=== PATIENT | male | born 1950 | race Caucasian/White ===

== ENCOUNTER → 2018-03-07 16:16 | Outpatient (CLI) | payer OTHER, SELFPAY ==
--- NOTE | 2018-03-07 16:20 | MRI_ITS ---
STUDY: MRI BRAIN WITH AND WITHOUT CONTRAST (ATTENTION INTERNAL AUDITORY CANALS - I.A.C.'s) REASON FOR EXAM: Male, 67 years old. Right-sided hearing loss. TECHNIQUE: Standardized multiplanar fat and water weighted pulse sequences were obtained. 10 ml of Gadavist contrast material was administered intravenously for the contrast portion of the examination. COMPARISON: None. FINDINGS: No restricted diffusion to suspect acute or subacute ischemic infarct. Normal bilateral temporal bones. Normal bilateral internal auditory canals. There is no demonstrated intracanalicular or cisternal vestibular schwannoma (acoustic neuroma). There is no enhancement of the bilateral VIIth or VIIIth cranial nerves. Normal bilateral cochlea, vestibules and semicircular canals. Normal size of the ventricles and extra-axial spaces for the patient's age. Normal white matter tracts of the supratentorial brain. Normal bilateral basal ganglia. Normal thalami. Normal flow voids within the major intracranial circulation suggesting patency by spin echo criteria. Normal venous enhancement. There is no enhancing intra-axial or extra-axial abnormality. There is no extra-axial fluid accumulation. Normal sella turcica, pituitary gland, infundibular stalk, optic chiasm and hypothalamus. Normal tectal plate and pineal gland. Normal midbrain, alvaro and medulla. Normal cerebellum. Normal basal cisterns. No demonstrated orbital abnormality, within the constraints of a routine brain study. Normal visualized paranasal sinuses. Normal calvarium and skull base. Normal visualized soft tissue structures. Normal visualized upper cervical spine. MRI/Brain W/WO Contrast IMPRESSION: Normal unenhanced and enhanced MRI of the bilateral internal auditory canals (I.A.C's). Electronically Signed: Blaine Maya MD at 15:59 EST , Service support ,
[2018-03-07 16:51] LABS: CREATININE FINGERSTICK 1.1 mg/dL (0.70-1.30); EGFR FINGERSTICK > 60.0000 mL/min (>60)
== END ==
PROVIDERS: Referring Provider Otolaryngology Otolaryngology/Facial Plastic Surgery; Visit Provider Otolaryngology Otolaryngology/Facial Plastic Surgery
DX: H91.91 Unspecified hearing loss, right ear (principal)
CPT/HCPCS: 70553; A9585

== ENCOUNTER 2018-04-30 08:08 | Emergency (ER) | payer OTHER, SELFPAY ==
[2018-04-30 08:09] VITALS: BP 150/91; PULSE 95; RESP 18; TEMP 36.6; O2SAT 96; BMI 30.7
--- NOTE | 2018-04-30 08:42 | EKG12_ITS ---
Test Reason : GEN ILL Blood Pressure : / mmHG Vent. Rate : 084 BPM Atrial Rate : 084 BPM P-R Int : 144 ms QRS Dur : 098 ms QT Int : 374 ms P-R-T Axes : 050 -16 029 degrees QTc Int : 441 ms Normal sinus rhythm Normal ECG Confirmed by ULYSSES WILLIAM, VERÓNICA ([id number]), staff editor ADELIA ABRAHAM ([id number]) on 05/02/2018 3:50:53 PM Referred By: HENRIQUE/ANTHONY Confirmed By:VERÓNICA ARORA MD
[2018-04-30 08:46] LABS: Bedside Glucose > 500 mg/dL (70-110)
--- NOTE | 2018-04-30 08:49 | ED.DCSUM_ITS ---
- ER Visit Summary Date of Service: 04/30/18 Chief Complaint: Increased thirst and weight loss History of Present Illness: The patient is a 67 M who presents the emergency department with 1 week history of increased thirst, increased urination particularly at night and a 15 pound weight loss in the past week. He states that he is tried quitting drinking around 7 PM but still finds himself urinating frequently. He notes blurry vision for the past couple days. He states he saw an eye doctor 3-4 months ago and things were okay. He notes decreased energy. He has been eating normally. Denies any sensory changes particularly in the feet. 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 Otherwise he takes no medications. He is a non-smoker. He lives at home with his and rarely uses alcohol. Physical Examination: Afebrile blood pressure 150/91. Gen: Well-nourished well- developed Head: Normocephalic atraumatic Eyes: Perrl EOMI ENT: TMs clear no rhinorrhea moist mucous membranes Neck: Supple no lymphadenopathy no JVD nontender CVS: Regular rate rhythm no murmurs normal S1-S2 Respiratory: No distress clear to auscultation bilaterally chest nontender Abdomen: Soft protuberant nontender nondistended normal bowel sounds no masses Back: Nontender Extremity: Nontender no edema Skin: Normal color no rash Neuro: alert orientated ?3 CN II-XII intact normal strength sensation reflexes gait cerebellar Psych: Normal affect normal mood Test Results: Initial Accu-Chek read high. Basic blood work showed normal electrolytes. Glucose 670. BUN 22 creatinine 1.58. TSH was normal. Ketones were negative. EKG sinus at a rate of 84. Emergency Department Course and Treatment: Patient received IV fluids and insulin. His blood sugar is down. Checked with his insurance company and next up on the no Doc list is Dr. Anton. She is in network for him. I spoke with her and we will start him on metformin 500 mg at night and glipizide 4 mg in the morning. He has diabetes/dietitian education scheduled. Social work was involved in his care. Impression: 1. New onset diabetes This note was generated with [employer] software. It may contain incorrect words, spelling, and punctuation that were not noted in review of the chart prior to signing ED Disposition - Plan for ED Patient: Disposition: Home or Assisted Living Instructions: What Is Type 2 Diabetes? Prescriptions: Glimepiride [Amaryl] 4 mg PO DAILY #30 tab Metformin(XR) [Glucophage Xr] 500 mg PO QHS #30 tab Referrals: Megan Anton MD [STAFF PHYSICIAN] - (call to arrange early follow up appointment)
--- NOTE | 2018-04-30 08:49 | NURSING ---
NO OLD EKGS
[2018-04-30] MEDS: 0.9% Normal Saline 1,000 ML 1000 ML IV (08:54)
[2018-04-30 09:00] LABS: Bacteria 0 SEEN /hpf (None Seen); Mucous, Urine 0 SEEN /hpf (<or=2+); Red Blood Cells-Urine 0 SEEN /hpf (0-5); Squamous Epithelial Cells - UA 0 SEEN /hpf (0-5); White Blood Cells 0 SEEN /hpf (0-5)
[2018-04-30 09:03] LABS: Color, Urine Yellow (Yellow); Glucose, Dipstick 1000 mg/dl (Normal); Ketone-Dipstick 50 mg/dl (Negative); Leukocyte Esterase-Dipstick Negative /ul (Negative); Nitrite-Dipstick Negative (Negative); Occult Blood-Urine Negative /ul (Negative); Protein-Dipstick Negative (Negative); Urine Bilirubin Dipstick Negative (Negative); Urine Clarity Clear (Clear); Urine Urobilinogen Normal (Normal)
[2018-04-30 09:10] LABS: Absolute Lymphocyte Count 1.27 X10^3/ul (0.83-4.51); Absolute Neutrophil Count 5.3 X10^3/uL (2.0-7.7); Basophil# 0.02 X10^3/uL; Basophil% 0.3 % (0-1); Eosinophil# 0.03 X10^3/uL; Eosinophils% 0.4 % (0-5); Hematocrit 48.3 % (40-54); Hemoglobin 17.2 g/dl (13.0-16.5); Lymphocyte # 1.27 X10^3/ul (4.0); Lymphocyte % 17.5 % (19-41); Mean Corp Hgb Conc 35.6 g/gl (32-36); Mean Corpuscular Hgb 31.2 pg (27.0-32.0); Mean Corpuscular Volume 87.7 fL (80-94); Mean Platelet Vol. 11.2 fl (6.2-12.0); Monocyte# 0.58 X10^3/uL; Neutrophil # 5.34 X10^3/uL (2.7-7.7); Neutrophil % 73.7 % (47-70); Platelet Count 211 K/mm3 (150-450); RBC Distribution Width CV 12.7 % (11.6-14.6); RBC Distribution Width SD 40.4 fl (35.1-43.9); Red Blood Count 5.51 M/mm3 (4.6-6.2); White Blood Count 7.3 K/mm3 (4.4-11.0)
[2018-04-30 09:11] LABS: POSITIVE COUNT NO; POSITIVE DIFFERENTIAL NO; POSITIVE MORPHOLOGY NO
[2018-04-30 09:36] LABS: AST(SGOT) 27 U/L (15-37); Alanine Aminotransfer ALT/SGPT 70 U/L (16-61); Albumin, Serum 4.2 g/dL (3.2-5.0); Alkaline Phosphatase 214 U/L (45-117); Anion Gap 12 (5-15); BUN 22 mg/dL (7-18); BUN/Creat Ratio 13.9 RATIO (10-20); Bilirubin, Direct 0.27 mg/dL (0.00-0.30); Calcium,Total 9.1 mg/dL (8.5-10.1); Chloride 101 mmol/L (98-107); Creatinine, Serum 1.58 mg/dL (0.70-1.30); EST Glomerular Filtration Rate 47 mL/min (>60); Est Glom Filt Rate - Afr Amer 57 mL/min (>60); Estimated Creatinine Clearance 48.13 ml/min; Globulin 3.7 g/dL (2.2-4.2); Glucose 670 mg/dL (74-106); Magnesium 2.6 mg/dL (1.6-2.6); Potassium 4.3 mmol/L (3.5-5.1); Protein, Total 7.9 g/dL (6.4-8.2); Sodium Level 136 mmol/L (136-145); Thyroid Stim Hormone (TSH) 0.83 uIU/mL (0.358-3.74)
[2018-04-30] MEDS: 0.9% Normal Saline 1,000 ML 150 ML IV (10:09)
[2018-04-30] MEDS: Insulin Lispro 100 UNIT/ML INSULN.PEN 10 UNIT IV (10:27)
--- NOTE | 2018-04-30 11:25 | CM.ED ---
SOCIAL WORK NOTE DR. VILLANUEVA REQUESTING THIS WORKER FOLLOW UP WITH PT FOR NEEDS. PT TO BE CALLING [employer] TO INQUIRE IF DR. HERNANDEZ IN NETWORK WITH INSURANCE PT DOES NOT HAVE PRIMARY CARE. PT ALSO NEW DIABETIC AND WILL NEED DIABETIC EDUCATION. THIS WORKER CALLED AND LEFT MESSAGE WITH THE [facility]. AWAITING CALL BACK AT THIS TIME. MET WITH PT AND PT'S AT BEDSIDE. INTRODUCED ROLE AND REASON FOR REFERRAL. PT STATES DID SPEAK WITH [employer] AND DR. HERNANDEZ IS IN NETWORK WITH INSURANCE. DISCUSSED NEW DX OF DIABETES. SUPPORT AND EDUCATION PROVIDED. INFORMED PT THIS WORKER WORKING ON APPOINTMENT WITH [facility] FOR PT AND . PT DENIES ANY OTHER NEEDS AT THIS TIME. THIS WORKER TO FOLLOW UP. DIMITRI TEJADA, SMALL ENGINE TECHNICIAN, SHIPPING SERVICES SALES REPRESENTATIVE.
[2018-04-30 11:26] LABS: Bedside Glucose 409 mg/dL (70-110)
--- NOTE | 2018-04-30 11:44 | CM.ED ---
SOCIAL WORK NOTE RECEIVED CALL BACK FROM [facility] WITH THE [facility]ETIC [facility]. APPOINTMENT SCHEDULED FOR 05/02/18 AT 1:30P. [facility] TO FAX THIS WORKER A REFERRAL FORM FOR DR. VILLANUEVA TO COMPLETE. WILL UPDATE PT AND DR. VILLANUEVA. DIMITRI TEJADA, BANDER AND CELLOPHANER MACHINE HELPER, INFORMATION OFFICER.
--- NOTE | 2018-04-30 12:23 | ED.RN ---
IV DC'ED, CATHETER INTACT,SMALL GAUZE DRESSING PLACED. DISCHARGE INSTRUCTIONS GIVEN TO AND REVIEWED WITH PATIENT, PATIENT DENIES QUESTIONS OR CONCERNS AND VOICES UNDERSTANDING OF DISCHARGE INSTRUCTIONS. PT AMBULATES OUT OF ROOM WITHOUT DIFFICULTY.
--- NOTE | 2018-04-30 12:28 | CM.ED ---
SOCIAL WORK NOTE DR. VILLANUEVA SIGNED ORDER FOR REFERRAL FOR DIABETIC CLINIC. UPDATED PT AND ON APPOINTMENT TIME, DATE AND LOCATION. PT AND IN AGREEMENT. WITH QUESTIONS FOR NURSE. NURSE TO ROOM AT THIS TIME. SIGNED REFERRAL ORDER FAXED BACK TO [facility] WITH [facility] SERVICES. DIMITRI TEJADA, CRIME LAB ANALYST, DRY KILN WORKER.
[2018-04-30 12:55] LABS: Hemoglobin A1c 10.7 % (4.2-6.3)
== END 2018-04-30 12:24 | disposition home or self-care (01) ==
PROVIDERS: Emergency Provider Emergency Medicine
DX: E11.9 Type 2 diabetes mellitus without complications (principal); Z79.84 Long term (current) use of oral hypoglycemic drugs
CPT/HCPCS: 80048; 80076; 81001; 82009; 82962; 83036; 83735; 84443; 85025; 93005; 96360; 96361; 99283; J7030; A4216

== ENCOUNTER 2018-05-02 13:12 | Outpatient (RCR) | payer OTHER, SELFPAY | END 2018-05-02 23:59 | LOC: DC 13:12 | PROVIDERS: Visit Provider Emergency Medicine | DX: E11.9 Type 2 diabetes mellitus without complications (principal) | CPT/HCPCS: G0108 ==

== ENCOUNTER 2018-05-03 08:00 | Outpatient (RCR) | payer OTHER, SELFPAY | END 2018-05-03 23:59 | LOC: DC 08:00 | PROVIDERS: Visit Provider Emergency Medicine | DX: E11.9 Type 2 diabetes mellitus without complications (principal); Z79.84 Long term (current) use of oral hypoglycemic drugs; Z71.3 Dietary counseling and surveillance | CPT/HCPCS: 97802 ==

== ENCOUNTER → 2018-10-08 | Outpatient (CLI) | payer MEDICARE, SELFPAY ==
[2018-10-08 14:28] LABS: Microalbumin,Random Urine 6.8 mg/L (NO RANGE EST.); Microalbumin:Creatinine Ratio 4.9 mg/g CRE (<30 mg/g CRE)
[2018-10-08 14:39] LABS: AST(SGOT) 17 U/L (15-37); Alanine Aminotransfer ALT/SGPT 23 U/L (16-61); Alkaline Phosphatase 112 U/L (45-117); Anion Gap 7 (5-15); BUN 20 mg/dL (7-18); BUN/Creat Ratio 19.6 RATIO (10-20); Bilirubin, Direct 0.14 mg/dL (0.00-0.30); Calcium,Total 9.4 mg/dL (8.5-10.1); Chloride 107 mmol/L (98-107); Cholesterol 160 mg/dL (200); Creatinine, Serum 1.02 mg/dL (0.70-1.30); EST Glomerular Filtration Rate 78 mL/min (>60); Est Glom Filt Rate - Afr Amer 94 mL/min (>60); Globulin 3.5 g/dL (2.2-4.2); Glucose 50 mg/dL (74-106); High Density Lipoprotein 45 mg/dL; Potassium 3.9 mmol/L (3.5-5.1); Protein, Total 7.5 g/dL (6.4-8.2); Sodium Level 140 mmol/L (136-145); Triglycerides 120 mg/dL; Very Low Density Lipoprotein 24 mg/dL (5-40)
== END | disposition home or self-care (01) ==
LOC: MFPLAB 11:34
PROVIDERS: Family Provider Family Medicine; PCP Family Medicine; Referring Provider Family Medicine; Visit Provider Family Medicine
DX: E11.9 Type 2 diabetes mellitus without complications (principal)
CPT/HCPCS: 36415; 80048; 80061; 80076; 82043; 82570

== ENCOUNTER → 2019-10-06 10:12 | Outpatient (CLI) | payer MEDICARE, SELFPAY ==
[2019-10-06 12:48] LABS: AST(SGOT) 21 U/L (15-37); Alanine Aminotransfer ALT/SGPT 29 U/L (16-61); Alkaline Phosphatase 92 U/L (45-117); Anion Gap 6 (5-15); BUN 15 mg/dL (7-18); BUN/Creat Ratio 15.7 RATIO (10-20); Bilirubin, Direct 0.14 mg/dL (0.00-0.30); Calcium,Total 9.2 mg/dL (8.5-10.1); Chloride 107 mmol/L (98-107); Cholesterol 158 mg/dL (200); Creatinine, Serum 0.96 mg/dL (0.70-1.30); EST Glomerular Filtration Rate 83 mL/min (>60); Est Glom Filt Rate - Afr Amer 101 mL/min (>60); Globulin 3.5 g/dL (2.2-4.2); Glucose 103 mg/dL (74-106); High Density Lipoprotein 47 mg/dL; Potassium 4.3 mmol/L (3.5-5.1); Protein, Total 7.5 g/dL (6.4-8.2); Sodium Level 138 mmol/L (136-145); Triglycerides 124 mg/dL; Very Low Density Lipoprotein 25 mg/dL (5-40)
== END ==
PROVIDERS: PCP Family Medicine; Referring Provider Family Medicine; Visit Provider Family Medicine
DX: E11.9 Type 2 diabetes mellitus without complications (principal)
CPT/HCPCS: 36415; 80048; 80061; 80076

== ENCOUNTER → 2020-04-07 11:33 | Outpatient (CLI) | payer MEDICARE, SELFPAY ==
[2020-04-07 15:42] LABS: Anion Gap 5 (5-15); BUN 23 mg/dL (7-18); BUN/Creat Ratio 22.1 RATIO (10-20); Calcium,Total 9.9 mg/dL (8.5-10.1); Chloride 108 mmol/L (98-107); Creatinine, Serum 1.04 mg/dL (0.70-1.30); EST Glomerular Filtration Rate 76 mL/min (>60); Est Glom Filt Rate - Afr Amer 91 mL/min (>60); Glucose 100 mg/dL (74-106); Potassium 4.4 mmol/L (3.5-5.1); Sodium Level 139 mmol/L (136-145)
[2020-04-07 16:00] LABS: Hemoglobin A1c 5.7 % (3.8-5.6)
== END ==
PROVIDERS: PCP Family Medicine; Referring Provider Family Medicine; Visit Provider Family Medicine
DX: E11.9 Type 2 diabetes mellitus without complications (principal)
CPT/HCPCS: 36415; 80048; 83036

== ENCOUNTER → 2020-10-06 11:20 | Outpatient (CLI) | payer MEDICARE, SELFPAY ==
[2020-10-06 12:31] LABS: PSA,Total - Annual Screen 1.31 ng/mL (0.00-4.00)
== END ==
PROVIDERS: PCP Family Medicine; Referring Provider Family Medicine; Visit Provider Family Medicine
DX: Z00.00 Encounter for general adult medical examination without abnormal findings (principal); Z12.5 Encounter for screening for malignant neoplasm of prostate
CPT/HCPCS: 36415; 84153; G0103

== ENCOUNTER → 2020-12-14 07:21 | Outpatient (CLI) | payer MEDICARE, SELFPAY ==
[2020-12-14 10:24] LABS: ALB/GLOB Ratio 1.1 RATIO (0.9-2.4); AST(SGOT) 18 U/L (15-37); Alanine Aminotransfer ALT/SGPT 25 U/L (16-61); Albumin, Serum 3.9 g/dL (3.2-5.0); Alkaline Phosphatase 83 U/L (45-117); Anion Gap 5 (5-15); BUN 16 mg/dL (7-18); BUN/Creat Ratio 15.7 RATIO (10-20); Calcium,Total 9.5 mg/dL (8.5-10.1); Chloride 106 mmol/L (98-107); Creatinine, Serum 1.02 mg/dL (0.70-1.30); EST Glomerular Filtration Rate 77 mL/min (>60); Est Glom Filt Rate - Afr Amer 93 mL/min (>60); Globulin 3.6 g/dL (2.2-4.2); Glucose 121 mg/dL (74-106); Potassium 4.2 mmol/L (3.5-5.1); Protein, Total 7.5 g/dL (6.4-8.2); Sodium Level 141 mmol/L (136-145); Thyroid Stim Hormone (TSH) 2.68 uIU/mL (0.358-3.74)
[2020-12-17 13:22] LABS: KEPPRA (LEVETIRACETAM) 9.4 ug/mL (10.0-40.0)
== END ==
PROVIDERS: PCP Family Medicine; Referring Provider Psychiatry & Neurology Neurology; Visit Provider Psychiatry & Neurology Neurology
DX: G40.909 Epilepsy, unspecified, not intractable, without status epilepticus (principal); E11.9 Type 2 diabetes mellitus without complications
CPT/HCPCS: 36415; 80053; 80177; 82140; 84443